=== PATIENT | male | born 1945 | race Caucasian/White ===

== ENCOUNTER 2017-10-17 15:08 | Emergency (ER) | payer OTHER ==
[~2017-10-17] VITALS: Ht 172.7 cm; Wt 45.4 kg
[2017-10-17 15:18] VITALS: Ht 172.7 cm; Wt 45.4 kg
[2017-10-17 17:02] LABS: BASOPHIL % 0.1 % (0-2); PLATELET COUNT 350 x10^3mcL (130-400)
[2017-10-17 17:08] LABS: ALKALINE PHOSPHATASE 143 U/L (46-116); ALT/SGPT 17 U/L (16-63); AST/SGOT 21 U/L (15-37); BILIRUBIN TOTAL 0.3 mg/dL (0.20-1.00); CALCIUM 7.2 mg/dL (8.5-10.1); CARBON DIOXIDE 16.9 mmol/L (21-32); CREATININE SERUM 1.2 mg/dL (0.7-1.3); GLUCOSE SERUM 254 mg/dL (74-106)
[2017-10-17 17:10] LABS: ALBUMIN 1.3 g/dL (3.4-5.0); TOTAL PROTEIN, SERUM 5.6 g/dL (6.4-8.2)
[2017-10-17 17:14] LABS: rbc morphology (normal/abnorm) ABNORMAL (NORMAL)
[2017-10-17 17:16] LABS: CHLORIDE SERUM 106 mmol/L (98-107); POTASSIUM SERUM 3.1 mmol/L (3.5-5.1); SODIUM SERUM 140 mmol/L (136-145)
[2017-10-17 18:04] VITALS: BP 128/75
== END 2017-10-17 18:04 | disposition short-term general hospital (02) ==
LOC: ED 15:08
PROVIDERS: Emergency Medicine
DX: M62.261 Nontraumatic ischemic infarction of muscle, right lower leg (principal)
CPT/HCPCS: J1644; J2270; Q9967